=== PATIENT | male | born 1985 | race African-American/Black ===

== ENCOUNTER 2020-03-09 20:21 | Emergency (ER) | payer MEDICAID ==
[~2020-03-09] VITALS: Ht 177.8 cm; Wt 90.0 kg
[2020-03-09] MEDS ORDERED: SODIUM CHLORIDE 0.9% 1,000 ML IV ONE (21:29)
[2020-03-09] MEDS ORDERED: LORAZEPAM 2MG/ML CPJ IV STA (21:29)
[2020-03-09] MEDS ORDERED: ONDANSETRON HCL 4MG/2ML INJ IV ONE (21:30)
[2020-03-09 22:12] LABS: CHLORIDE 100 mEq/L (98-107)
[2020-03-09 22:16] LABS: ETHANOL BLOOD < 10 mg/dL
[2020-03-09 22:22] LABS: BASOPHILS % 0.1 % (0.0-2.0); EOSINOPHILS % 0.5 % (0.0-5.0); HEMOGLOBIN. 15.6 g/dL (14.0-18.0); MEAN CORPUSCULAR HEMOGLOBIN 32.9 pg (28.0-32.0); MEAN CORPUSCULAR VOLUME 94.6 fL (80.0-94.0); MEAN PLATELET VOLUME 10.1 fl (7.4-10.4); MONOCYTES % 5.9 % (2.0-8.0); NEUTROPHILS % 85.5 % (40.0-76.0); PLATELET 236 x1000/uL (130-400); RED BLOOD CELL COUNT 4.76 mill/uL (4.7-6.1); RED CELL DISTRIBUTION WIDTH 13.3 % (11.6-14.6)
[2020-03-09 22:42] LABS: *AMPHETAMINES SCREEN URINE PRESUMTIVE POSITIVE (NEGATIVE); *BARBITURATES SCREEN URINE NEGATIVE (NEGATIVE); *BENZODIAZEPINES SCREEN URINE NEGATIVE (NEGATIVE); *COCAINE SCREEN URINE NEGATIVE (NEGATIVE); CANNABINOID URINE SCREEN PRESUMTIVE POSITIVE (NEGATIVE); OPIATES URINE SCREEN NEGATIVE (NEGATIVE); PHENCYCLIDINE URINE SCREEN NEGATIVE (NEGATIVE)
[2020-03-09 22:43] LABS: METHADONE URINE SCREEN NEGATIVE (NEGATIVE)
[2020-03-09] MEDS ORDERED: POTASSIUM CHLORIDE 20MEQ TABLET SR PO ONE (23:00)
[2020-03-10 01:00] VITALS: BP 119/70
== END 2020-03-10 01:37 | disposition home or self-care (01) ==
LOC: ER 20:21
DX: F11.23 Opioid dependence with withdrawal (principal); E87.6 Hypokalemia
CPT/HCPCS: 36415; 80053; 80305; 80320; 85025; 96361; 96374; 96375; 99285; J2060; J2405; J7030; G0480